=== PATIENT | male | born 1990 | race African-American/Black ===

== ENCOUNTER 2018-09-22 11:26 | Emergency (ER) | payer OTHER ==
[~2018-09-22] VITALS: Ht 170.2 cm; Wt 76.0 kg
[2018-09-22] MEDS ORDERED: PREDNISONE 20MG TABLET PO STA (11:57)
[2018-09-22] MEDS ORDERED: ALBUTEROL (0.083%) 2.5MG/3ML NEB HHN STA (11:57)
[2018-09-22] MEDS ORDERED: IPRATROPIUM BROMIDE (0.02%) 0.5MG/2.5ML NEB HHN STA (11:57)
[2018-09-22 13:18] VITALS: BP 120/70
== END 2018-09-22 13:33 | disposition home or self-care (01) ==
LOC: ER 11:26
DX: J45.901 Unspecified asthma with (acute) exacerbation (principal)
CPT/HCPCS: 94640; 99283; J7512; J7611